=== PATIENT | female | born 1960 | race Caucasian/White ===

== ENCOUNTER → 2020-11-14 | Outpatient (CLI) | payer OTHER | LOC: KOH-I 11:19 | DX: R06.02 Shortness of breath (principal) | CPT/HCPCS: 71046 ==

== ENCOUNTER → 2021-04-04 | Outpatient (CLI) | payer OTHER | LOC: KOH-I 13:27 | DX: R06.02 Shortness of breath (principal) | CPT/HCPCS: 71046 ==